=== PATIENT | male | born 1935 | race African-American/Black ===

== ENCOUNTER 2019-03-18 11:05 | Inpatient (IN) | payer MEDICARE, OTHER ==
[~2019-03-18] VITALS: Ht 172.7 cm; Wt 109.3 kg
[2019-03-18] MEDS ORDERED: ACETAMINOPHEN 325MG TABLET PO ONE (11:45)
[2019-03-18 12:05] LABS: CHLORIDE 103 mEq/L (98-107)
[2019-03-18 12:06] LABS: HEMATOCRIT. 35.2 % (42.0-52.0); HEMOGLOBIN. 12.6 g/dL (14.0-18.0); MEAN CORPUSCULAR HEMOGLOBIN 32.5 pg (28.0-32.0); MEAN CORPUSCULAR VOLUME 90.9 fL (80.0-94.0); MEAN PLATELET VOLUME 8.4 fl (7.4-10.4); PLATELET 216 x1000/uL (130-400); RED BLOOD CELL COUNT 3.87 mill/uL (4.7-6.1); RED CELL DISTRIBUTION WIDTH 13.8 % (11.6-14.6)
[2019-03-18] MEDS ORDERED: MAGNESIUM 2 G PREMIX 50 ML IV ONE (12:15)
[2019-03-18 12:42] LABS: PLATELET ESTIMATE NORMAL
[2019-03-18] MEDS ORDERED: FUROSEMIDE 40MG/4ML VIAL IVP ONE (13:00)
[2019-03-18] MEDS ORDERED: ASPIRIN 325MG EC TABLET PO ONE (13:00)
[2019-03-18] MEDS ORDERED: GUAIFENESIN 200MG/10ML SUGAR FREE UDC PO PRN (17:15)
[2019-03-18] MEDS ORDERED: DOCUSATE SODIUM 100MG CAPSULE PO PRN (17:15)
[2019-03-18] MEDS ORDERED: NA PHOS,M-B/NA PHOS,DI-BA ENEMA 118ML PR PRN (17:15)
[2019-03-18] MEDS ORDERED: IPRATROPIUM/ALBUTEROL 0.5-3(2.5)MG/3ML NEB NEB PRN (17:15)
[2019-03-18] MEDS ORDERED: DIPHENHYDRAMINE 50MG/ML VIAL IV PRN (17:15)
[2019-03-18] MEDS ORDERED: ACETAMINOPHEN 325MG TABLET PO PRN (17:15)
[2019-03-18] MEDS ORDERED: CLONIDINE 0.1MG TABLET PO PRN (17:15)
[2019-03-18] MEDS ORDERED: ONDANSETRON HCL 4MG/2ML INJ IV PRN (17:15)
[2019-03-18] MEDS ORDERED: MORPHINE SULFATE 2 MG/ML CPJ (NOT FOR IM USE) IV PRN (17:15)
[2019-03-18] MEDS ORDERED: HYDROCODONE/ACETAMINOPHEN 5/325MG TABLET PO PRN (17:15)
[2019-03-18] MEDS ORDERED: LORAZEPAM 2MG/ML CPJ IV PRN (17:15)
[2019-03-18] MEDS ORDERED: MAGNESIUM/ALUMINUM HYDROXIDE/SIMETHICONE 30ML UDC PO PRN (17:15)
[2019-03-18 20:26] LABS: CHLORIDE 104 mEq/L (98-107)
[2019-03-19] MEDS ORDERED: LEVOFLOXACIN 500MG PREMIX 100 ML IV SCH (02:00)
[2019-03-19 03:01] VITALS: BP 154/69
[2019-03-19 04:00] VITALS: BP 152/79
[2019-03-19 08:00] VITALS: BP 161/80
[2019-03-19] MEDS: ASPIRIN 81MG EC TABLET PO SCH (08:33)
[2019-03-19] MEDS: ENOXAPARIN 30MG/0.3ML SYR SUBCUT SCH ×2 (08:35→21:22)
[2019-03-19] MEDS ORDERED: FUROSEMIDE 40MG/4ML VIAL IV SCH (09:00)
[2019-03-19 09:54] LABS: HEMATOCRIT. 34.7 % (42.0-52.0); HEMOGLOBIN. 12.3 g/dL (14.0-18.0); MEAN CORPUSCULAR HEMOGLOBIN 32.3 pg (28.0-32.0); MEAN CORPUSCULAR VOLUME 90.9 fL (80.0-94.0); RED BLOOD CELL COUNT 3.81 mill/uL (4.7-6.1); RED CELL DISTRIBUTION WIDTH 13.8 % (11.6-14.6)
[2019-03-19 10:46] LABS: CHLORIDE 104 mEq/L (98-107)
[2019-03-19 10:55] LABS: LDL CHOLESTEROL 91 mg/dL (5-100)
[2019-03-19 10:56] LABS: HDL CHOLESTEROL 55 mg/dL (40-59); T4 FREE 1.68 ng/dL (0.76-1.46)
[2019-03-19 12:00] LABS: PLATELET 254 x1000/uL (130-400)
[2019-03-19 12:09] VITALS: BP 153/69
[2019-03-19 16:15] VITALS: BP 172/78
[2019-03-19] MEDS: AMLODIPINE 5MG TABLET PO SCH (18:10)
[2019-03-19] MEDS ORDERED: FUROSEMIDE 40MG TABLET PO SCH (18:15)
[2019-03-19] MEDS: FUROSEMIDE 40MG/4ML VIAL IVP SCH (19:27)
[2019-03-19 20:00] VITALS: BP 157/75
[2019-03-19] MEDS ORDERED: DEXTROSE 50% WATER 50ML SYRINGE IV PRN (20:15)
[2019-03-19] MEDS: BLOOD SUGAR DIAGNOSTIC STRIP TEST SCH (20:51)
[2019-03-19] MEDS: INSULIN LISPRO 100 UNITS/ML SUBCUT SCH (21:27)
[2019-03-20] VITALS: BP 139/57
[2019-03-20] MEDS: BLOOD SUGAR DIAGNOSTIC STRIP TEST SCH ×4 (06:21→21:09)
[2019-03-20] MEDS: FUROSEMIDE 40MG/4ML VIAL IVP SCH ×2 (06:28→17:30)
[2019-03-20] MEDS: INSULIN LISPRO 100 UNITS/ML SUBCUT SCH ×4 (07:38→21:15)
[2019-03-20 08:00] VITALS: BP 159/76
[2019-03-20] MEDS: LEVOFLOXACIN 500MG PREMIX 100 ML IV SCH (09:38)
[2019-03-20] MEDS: ENOXAPARIN 30MG/0.3ML SYR SUBCUT SCH ×2 (09:39→21:09)
[2019-03-20] MEDS: ASPIRIN 81MG EC TABLET PO SCH (09:39)
[2019-03-20] MEDS: AMLODIPINE 5MG TABLET PO SCH (09:40)
[2019-03-20 12:47] VITALS: BP 112/61
[2019-03-20 16:00] VITALS: BP 115/50
[2019-03-20] MEDS ORDERED: COLCHICINE 0.6MG TABLET PO NR (16:15)
[2019-03-20 20:28] VITALS: BP 123/52
[2019-03-20 20:38] LABS: CREATINE KINASE MB FRACTION 1.3 ng/mL (0.5-3.6)
[2019-03-20 20:39] LABS: T4 FREE 1.63 ng/dL (0.76-1.46)
[2019-03-21 00:42] VITALS: BP 136/56
[2019-03-21 00:51] LABS: CREATINE KINASE MB FRACTION 1.2 ng/mL (0.5-3.6)
[2019-03-21 04:00] VITALS: BP 121/59
[2019-03-21] MEDS: FUROSEMIDE 40MG/4ML VIAL IVP SCH ×2 (06:35→17:09)
[2019-03-21] MEDS: BLOOD SUGAR DIAGNOSTIC STRIP TEST SCH ×4 (06:35→20:48)
[2019-03-21] MEDS: INSULIN LISPRO 100 UNITS/ML SUBCUT SCH ×4 (07:50→20:48)
[2019-03-21 08:00] VITALS: BP 130/57
[2019-03-21] MEDS: LEVOFLOXACIN 500MG PREMIX 100 ML IV SCH (08:02)
[2019-03-21 08:39] LABS: CREATINE KINASE MB FRACTION 1.2 ng/mL (0.5-3.6)
[2019-03-21] MEDS ORDERED: COLCHICINE 0.6MG TABLET PO SCH (09:00)
[2019-03-21] MEDS: ENOXAPARIN 30MG/0.3ML SYR SUBCUT SCH ×2 (09:35→20:48)
[2019-03-21] MEDS: AMLODIPINE 5MG TABLET PO SCH (09:36)
[2019-03-21] MEDS: ASPIRIN 81MG EC TABLET PO SCH (09:36)
[2019-03-21 12:00] VITALS: BP 133/54
[2019-03-21] MEDS ORDERED: LOSARTAN POTASSIUM 50 MG TABLET PO SCH (13:00)
[2019-03-21] MEDS: LOSARTAN POTASSIUM 25 MG TABLET PO SCH (13:38)
[2019-03-21 16:00] VITALS: BP 112/50
[2019-03-21] MEDS ORDERED: LACTULOSE 20G/30ML UDC PO PRN (16:45)
[2019-03-21 20:00] VITALS: BP 135/67
[2019-03-21] MEDS: CARVEDILOL 3.125 MG TABLET PO SCH (20:48)
[2019-03-22 00:16] VITALS: BP 132/60
[2019-03-22 04:00] VITALS: BP 145/58
[2019-03-22 06:16] LABS: BASOPHILS % 1.1 % (0.0-2.0); EOSINOPHILS % 0.6 % (0.0-5.0); HEMATOCRIT. 31.1 % (42.0-52.0); HEMOGLOBIN. 11.2 g/dL (14.0-18.0); LYMPHOCYTES % 20.3 % (20.0-50.0); MEAN CORPUSCULAR HEMOGLOBIN 32.5 pg (28.0-32.0); MEAN CORPUSCULAR VOLUME 90.5 fL (80.0-94.0); MEAN PLATELET VOLUME 8.8 fl (7.4-10.4); MONOCYTES % 12.7 % (2.0-8.0); NEUTROPHILS % 65.3 % (40.0-76.0); PLATELET 232 x1000/uL (130-400); RED BLOOD CELL COUNT 3.44 mill/uL (4.7-6.1); RED CELL DISTRIBUTION WIDTH 13.8 % (11.6-14.6)
[2019-03-22] MEDS: FUROSEMIDE 40MG/4ML VIAL IVP SCH ×2 (06:17→17:25)
[2019-03-22] MEDS: BLOOD SUGAR DIAGNOSTIC STRIP TEST SCH ×4 (06:54→20:23)
[2019-03-22] MEDS: INSULIN LISPRO 100 UNITS/ML SUBCUT SCH ×4 (07:50→20:24)
[2019-03-22 08:00] VITALS: BP_SYST 134; BP_SYST 141; BP_DIAS 61; BP_DIAS 79
[2019-03-22] MEDS: LEVOFLOXACIN 500MG PREMIX 100 ML IV SCH (08:00)
[2019-03-22] MEDS: LOSARTAN POTASSIUM 25 MG TABLET PO SCH (08:45)
[2019-03-22] MEDS: ASPIRIN 81MG EC TABLET PO SCH (08:45)
[2019-03-22] MEDS: AMLODIPINE 5MG TABLET PO SCH (08:46)
[2019-03-22] MEDS: CARVEDILOL 3.125 MG TABLET PO SCH ×2 (08:46→20:24)
[2019-03-22] MEDS: ENOXAPARIN 30MG/0.3ML SYR SUBCUT SCH ×2 (08:47→20:24)
[2019-03-22] MEDS ORDERED: POTASSIUM CHLORIDE 20MEQ TABLET SR PO NR (11:15)
[2019-03-22 12:00] VITALS: BP 132/58
[2019-03-22 16:00] VITALS: BP 120/42
[2019-03-22 20:29] VITALS: BP 148/59
[2019-03-23 00:24] VITALS: BP 141/48
[2019-03-23 04:00] VITALS: BP 121/53
[2019-03-23] MEDS: FUROSEMIDE 40MG/4ML VIAL IVP SCH (06:19)
[2019-03-23] MEDS: BLOOD SUGAR DIAGNOSTIC STRIP TEST SCH ×2 (06:44→12:18)
[2019-03-23 07:43] LABS: EOSINOPHILS % 1.6 % (0.0-5.0); HEMATOCRIT. 32.3 % (42.0-52.0); HEMOGLOBIN. 11.5 g/dL (14.0-18.0); LYMPHOCYTES % 26.7 % (20.0-50.0); MEAN CORPUSCULAR HEMOGLOBIN 32.2 pg (28.0-32.0); MEAN CORPUSCULAR VOLUME 90.4 fL (80.0-94.0); MEAN PLATELET VOLUME 8.6 fl (7.4-10.4); MONOCYTES % 14.5 % (2.0-8.0); NEUTROPHILS % 56.2 % (40.0-76.0); PLATELET 252 x1000/uL (130-400); RED BLOOD CELL COUNT 3.57 mill/uL (4.7-6.1); RED CELL DISTRIBUTION WIDTH 13.9 % (11.6-14.6)
[2019-03-23] MEDS: INSULIN LISPRO 100 UNITS/ML SUBCUT SCH ×2 (07:44→12:24)
[2019-03-23 07:56] LABS: PROSTRATE SPECIFIC AG TOTAL 12.31 ng/mL (0.0-4.0)
[2019-03-23 08:00] VITALS: BP 139/57
[2019-03-23 08:21] LABS: CHLORIDE 103 mEq/L (98-107)
[2019-03-23 08:33] LABS: CREATINE KINASE 195 IU/L (39-308)
[2019-03-23] MEDS: AMLODIPINE 5MG TABLET PO SCH (09:20)
[2019-03-23] MEDS: CARVEDILOL 3.125 MG TABLET PO SCH (09:20)
[2019-03-23] MEDS: LOSARTAN POTASSIUM 25 MG TABLET PO SCH (09:20)
[2019-03-23] MEDS: ASPIRIN 81MG EC TABLET PO SCH (09:20)
[2019-03-23] MEDS: ENOXAPARIN 30MG/0.3ML SYR SUBCUT SCH (09:21)
[2019-03-23] MEDS ORDERED: LEVOFLOXACIN 500MG TABLET PO SCH (11:00)
[2019-03-23 12:00] VITALS: BP 130/54
[2019-03-23 14:16] VITALS: BP 130/54
== END 2019-03-23 16:15 | DRG 291 ==
LOC: ER 11:12 → 6WST 13:48 → ENRESERV 22:19
PROVIDERS: ADMIT Internal Medicine; ATTEND Internal Medicine
DX: I11.0 Hypertensive heart disease with heart failure (principal); J96.00 Acute respiratory failure, unspecified whether with hypoxia or hypercapnia; E46 Unspecified protein-calorie malnutrition; M62.82 Rhabdomyolysis; R64 Cachexia; I50.23 Acute on chronic systolic (congestive) heart failure; E78.5 Hyperlipidemia, unspecified; E11.42 Type 2 diabetes mellitus with diabetic polyneuropathy; I27.20 Pulmonary hypertension, unspecified; I34.0 Nonrheumatic mitral (valve) insufficiency; I42.9 Cardiomyopathy, unspecified; M10.9 Gout, unspecified; R62.7 Adult failure to thrive; Z68.36 Body mass index [BMI] 36.0-36.9, adult; Z79.899 Other long term (current) drug therapy; Z82.49 Family history of ischemic heart disease and other diseases of the circulatory system; Z87.891 Personal history of nicotine dependence
CPT/HCPCS: 36415; 71045; 73120; 80048; 80053; 80061; 82550; 82553; 82607; 82962; 83036; 83880; 84134; 84153; 84439; 84443; 84484; 84550; 85025; 85379; 93005; 93306; 93970; 93971; 96365; 96375; 97162; 99285; C1893; J1650; J1815; J1940; J1956; J3475; G0103

== ENCOUNTER 2019-03-23 16:30 | Inpatient (IN) | payer MEDICARE ==
[~2019-03-23] VITALS: Ht 172.7 cm; Wt 109.1 kg
[2019-03-23] MEDS ORDERED: LORAZEPAM 0.5MG TABLET PO PRN (17:45)
[2019-03-23] MEDS ORDERED: LACTULOSE 20G/30ML UDC PO PRN (17:45)
[2019-03-23] MEDS ORDERED: ONDANSETRON HCL 4MG TABLET PO PRN (17:45)
[2019-03-23] MEDS ORDERED: DEXTROSE 50% WATER 50ML SYRINGE IV PRN (17:45)
[2019-03-23] MEDS ORDERED: MAGNESIUM/ALUMINUM HYDROXIDE/SIMETHICONE 30ML UDC PO PRN (17:45)
[2019-03-23] MEDS ORDERED: GUAIFENESIN 200MG/10ML SUGAR FREE UDC PO PRN (17:45)
[2019-03-23] MEDS ORDERED: IPRATROPIUM/ALBUTEROL 0.5-3(2.5)MG/3ML NEB HHN PRN (17:45)
[2019-03-23] MEDS ORDERED: CLONIDINE 0.1MG TABLET PO PRN (17:45)
[2019-03-23] MEDS ORDERED: DIPHENHYDRAMINE 25MG CAPSULE PO PRN (17:45)
[2019-03-23] MEDS ORDERED: NA PHOS,M-B/NA PHOS,DI-BA ENEMA 118ML PR PRN (17:45)
[2019-03-23] MEDS ORDERED: ACETAMINOPHEN 325MG TABLET PO PRN (17:45)
[2019-03-23] MEDS ORDERED: MORPHINE SULFATE 2 MG/ML CPJ (NOT FOR IM USE) IV PRN (17:45)
[2019-03-23 19:44] VITALS: BP 130/59
[2019-03-23 20:00] VITALS: BP 136/61
[2019-03-23] MEDS: ENOXAPARIN 30MG/0.3ML SYR SUBCUT SCH (21:53)
[2019-03-23] MEDS: CARVEDILOL 3.125 MG TABLET PO SCH (21:55)
[2019-03-23] MEDS: BLOOD SUGAR DIAGNOSTIC STRIP TEST SCH (21:55)
[2019-03-23] MEDS: INSULIN LISPRO 100 UNITS/ML SUBCUT SCH (21:57)
[2019-03-24] MEDS: BLOOD SUGAR DIAGNOSTIC STRIP TEST SCH ×4 (06:08→21:00)
[2019-03-24] MEDS: INSULIN LISPRO 100 UNITS/ML SUBCUT SCH ×4 (06:11→22:12)
[2019-03-24] MEDS: FUROSEMIDE 40MG TABLET PO SCH ×2 (06:58→17:42)
[2019-03-24 08:05] VITALS: BP 133/58
[2019-03-24] MEDS: DOCUSATE SODIUM 100MG CAPSULE PO SCH ×2 (09:09→17:42)
[2019-03-24] MEDS: ASPIRIN 81MG EC TABLET PO SCH (09:10)
[2019-03-24] MEDS: CARVEDILOL 3.125 MG TABLET PO SCH ×2 (09:10→22:09)
[2019-03-24] MEDS: LOSARTAN POTASSIUM 25 MG TABLET PO SCH (09:10)
[2019-03-24] MEDS: AMLODIPINE 5MG TABLET PO SCH (09:10)
[2019-03-24] MEDS: ENOXAPARIN 30MG/0.3ML SYR SUBCUT SCH ×2 (09:11→22:11)
[2019-03-24] MEDS: LEVOFLOXACIN 500MG TABLET PO SCH (12:55)
[2019-03-24] MEDS ORDERED: NA PHOS,M-B/NA PHOS,DI-BA ENEMA 118ML PR PRN (15:45)
[2019-03-24] MEDS ORDERED: DOCUSATE SODIUM 100MG CAPSULE PO SCH (17:00)
[2019-03-24 20:00] VITALS: BP 137/48
[2019-03-25] MEDS: INSULIN LISPRO 100 UNITS/ML SUBCUT SCH ×4 (06:04→22:39)
[2019-03-25] MEDS: BLOOD SUGAR DIAGNOSTIC STRIP TEST SCH ×4 (06:04→21:00)
[2019-03-25] MEDS: FUROSEMIDE 40MG TABLET PO SCH ×2 (06:04→06:11)
[2019-03-25 08:25] VITALS: BP 149/60
[2019-03-25] MEDS: ASPIRIN 81MG EC TABLET PO SCH (10:52)
[2019-03-25] MEDS: AMLODIPINE 5MG TABLET PO SCH (10:53)
[2019-03-25] MEDS: LOSARTAN POTASSIUM 25 MG TABLET PO SCH (10:54)
[2019-03-25] MEDS: DOCUSATE SODIUM 100MG CAPSULE PO SCH ×2 (10:54→17:00)
[2019-03-25] MEDS: CARVEDILOL 3.125 MG TABLET PO SCH ×2 (10:55→22:35)
[2019-03-25] MEDS: ENOXAPARIN 30MG/0.3ML SYR SUBCUT SCH ×2 (10:56→22:38)
[2019-03-25] MEDS: LEVOFLOXACIN 500MG TABLET PO SCH (11:22)
[2019-03-25] MEDS ORDERED: TRIAMCINOLONE ACETONIDE 40MG/ML 1ML VIAL IM NR (12:00)
[2019-03-25] MEDS ORDERED: ETHYL CHLORIDE CAN TOP NR (12:00)
[2019-03-25] MEDS ORDERED: BUPIVACAINE HCL 0.5% (5MG/ML) 50ML IR NR (12:00)
[2019-03-25] MEDS ORDERED: LIDOCAINE HCL/PF 1% 10 MG/ML 5ML VIAL IJ NR (12:00)
[2019-03-25] MEDS: LACTULOSE 20G/30ML UDC PO PRN (12:58)
[2019-03-25] MEDS: BISACODYL 5MG TABLET PO PRN (12:59)
[2019-03-25 20:00] VITALS: BP 130/50
[2019-03-26] MEDS: BLOOD SUGAR DIAGNOSTIC STRIP TEST SCH ×4 (06:07→21:00)
[2019-03-26] MEDS: FUROSEMIDE 40MG TABLET PO SCH ×2 (06:08→16:39)
[2019-03-26] MEDS: INSULIN LISPRO 100 UNITS/ML SUBCUT SCH ×4 (06:09→22:22)
[2019-03-26 08:00] VITALS: BP_SYST 108; BP_SYST 119; BP_DIAS 54; BP_DIAS 66
[2019-03-26] MEDS: ASPIRIN 81MG EC TABLET PO SCH (08:50)
[2019-03-26] MEDS: ENOXAPARIN 30MG/0.3ML SYR SUBCUT SCH ×2 (08:50→22:11)
[2019-03-26] MEDS: DOCUSATE SODIUM 100MG CAPSULE PO SCH ×2 (08:50→16:39)
[2019-03-26] MEDS: LOSARTAN POTASSIUM 25 MG TABLET PO SCH (08:51)
[2019-03-26] MEDS: AMLODIPINE 5MG TABLET PO SCH (08:51)
[2019-03-26] MEDS: CARVEDILOL 3.125 MG TABLET PO SCH ×2 (08:51→22:11)
[2019-03-26] MEDS: LEVOFLOXACIN 500MG TABLET PO SCH (11:36)
[2019-03-26 13:40] VITALS: BP 122/63
[2019-03-26] MEDS: HYDROCODONE/ACETAMINOPHEN 5/325MG TABLET PO PRN (13:49)
[2019-03-26 20:00] VITALS: BP 140/50
[2019-03-27] MEDS: BLOOD SUGAR DIAGNOSTIC STRIP TEST SCH ×4 (05:41→21:00)
[2019-03-27] MEDS: FUROSEMIDE 40MG TABLET PO SCH ×2 (05:41→17:28)
[2019-03-27] MEDS: INSULIN LISPRO 100 UNITS/ML SUBCUT SCH ×4 (06:08→22:26)
[2019-03-27 07:00] VITALS: BP 146/60
[2019-03-27] MEDS: LIDOCAINE 5% PATCH TOP SCH (08:53)
[2019-03-27] MEDS: DOCUSATE SODIUM 100MG CAPSULE PO SCH ×2 (08:54→17:28)
[2019-03-27] MEDS: ASPIRIN 81MG EC TABLET PO SCH (08:54)
[2019-03-27] MEDS: LOSARTAN POTASSIUM 25 MG TABLET PO SCH (08:54)
[2019-03-27] MEDS: CARVEDILOL 3.125 MG TABLET PO SCH ×2 (08:54→21:54)
[2019-03-27] MEDS: ENOXAPARIN 30MG/0.3ML SYR SUBCUT SCH ×2 (08:55→21:54)
[2019-03-27] MEDS: AMLODIPINE 5MG TABLET PO SCH (08:56)
[2019-03-27] MEDS: HYDROCODONE/ACETAMINOPHEN 5/325MG TABLET PO PRN (08:57)
[2019-03-27] MEDS: CLOTRIMAZOLE 1% CREAM 30GM TOP SCH (11:27)
[2019-03-27] MEDS: LEVOFLOXACIN 500MG TABLET PO SCH (11:27)
[2019-03-27 20:00] VITALS: BP 129/51
[2019-03-28] MEDS: BLOOD SUGAR DIAGNOSTIC STRIP TEST SCH ×4 (06:37→21:10)
[2019-03-28] MEDS: FUROSEMIDE 40MG TABLET PO SCH ×2 (06:38→16:59)
[2019-03-28 08:00] VITALS: BP 124/57
[2019-03-28] MEDS: INSULIN LISPRO 100 UNITS/ML SUBCUT SCH ×4 (09:00→21:12)
[2019-03-28] MEDS: DOCUSATE SODIUM 100MG CAPSULE PO SCH ×2 (10:13→16:59)
[2019-03-28] MEDS: LEVOFLOXACIN 500MG TABLET PO SCH (10:13)
[2019-03-28] MEDS: ZINC SULFATE 220 MG ( 50 ) CAPSULE PO SCH (10:13)
[2019-03-28] MEDS: ASPIRIN 81MG EC TABLET PO SCH (10:13)
[2019-03-28] MEDS: ENOXAPARIN 30MG/0.3ML SYR SUBCUT SCH ×2 (10:14→21:00)
[2019-03-28] MEDS: AMLODIPINE 5MG TABLET PO SCH (10:14)
[2019-03-28] MEDS: ASCORBIC ACID 500 MG TABLET PO SCH (10:14)
[2019-03-28] MEDS: LIDOCAINE 5% PATCH TOP SCH (10:15)
[2019-03-28] MEDS: CARVEDILOL 3.125 MG TABLET PO SCH ×2 (10:15→21:00)
[2019-03-28] MEDS: LOSARTAN POTASSIUM 25 MG TABLET PO SCH (10:15)
[2019-03-28] MEDS: HYDROCODONE/ACETAMINOPHEN 5/325MG TABLET PO PRN (10:16)
[2019-03-28] MEDS: CLOTRIMAZOLE 1% CREAM 30GM TOP SCH (16:59)
[2019-03-28] MEDS: LACTULOSE 20G/30ML UDC PO PRN (16:59)
[2019-03-28] MEDS ORDERED: LORAZEPAM 0.5MG TABLET PO PRN (18:45)
[2019-03-28 20:00] VITALS: BP 121/50
[2019-03-29] MEDS: BLOOD SUGAR DIAGNOSTIC STRIP TEST SCH ×4 (06:21→21:00)
[2019-03-29] MEDS: FUROSEMIDE 40MG TABLET PO SCH ×2 (06:26→18:31)
[2019-03-29] MEDS: INSULIN LISPRO 100 UNITS/ML SUBCUT SCH ×4 (06:28→21:28)
[2019-03-29 08:00] VITALS: BP 119/47
[2019-03-29] MEDS: ASPIRIN 81MG EC TABLET PO SCH (09:31)
[2019-03-29] MEDS: LOSARTAN POTASSIUM 25 MG TABLET PO SCH (09:31)
[2019-03-29] MEDS: ASCORBIC ACID 500 MG TABLET PO SCH (09:31)
[2019-03-29] MEDS: AMLODIPINE 5MG TABLET PO SCH (09:31)
[2019-03-29] MEDS: ZINC SULFATE 220 MG ( 50 ) CAPSULE PO SCH (09:31)
[2019-03-29] MEDS: CARVEDILOL 3.125 MG TABLET PO SCH ×2 (09:32→20:42)
[2019-03-29] MEDS: DOCUSATE SODIUM 100MG CAPSULE PO SCH (09:32)
[2019-03-29] MEDS: ENOXAPARIN 30MG/0.3ML SYR SUBCUT SCH ×2 (09:33→20:42)
[2019-03-29] MEDS: LIDOCAINE 5% PATCH TOP SCH (09:34)
[2019-03-29] MEDS: CLOTRIMAZOLE 1% CREAM 30GM TOP SCH (09:35)
[2019-03-29] MEDS: LEVOFLOXACIN 500MG TABLET PO SCH (12:29)
[2019-03-29] MEDS ORDERED: DOCUSATE SODIUM 100MG CAPSULE PO PRN (15:45)
[2019-03-29 20:00] VITALS: BP 112/59
[2019-03-30] MEDS: BLOOD SUGAR DIAGNOSTIC STRIP TEST SCH ×4 (06:00→20:53)
[2019-03-30] MEDS: FUROSEMIDE 40MG TABLET PO SCH ×2 (06:16→17:05)
[2019-03-30] MEDS: INSULIN LISPRO 100 UNITS/ML SUBCUT SCH ×4 (06:19→20:53)
[2019-03-30 07:45] LABS: BASOPHILS % 0.7 % (0.0-2.0); EOSINOPHILS % 1.3 % (0.0-5.0); HEMATOCRIT. 29.8 % (42.0-52.0); HEMOGLOBIN. 10.6 g/dL (14.0-18.0); LYMPHOCYTES % 36.3 % (20.0-50.0); MEAN CORPUSCULAR HEMOGLOBIN 31.9 pg (28.0-32.0); MEAN CORPUSCULAR VOLUME 89.7 fL (80.0-94.0); MEAN PLATELET VOLUME 7.9 fl (7.4-10.4); MONOCYTES % 12.9 % (2.0-8.0); NEUTROPHILS % 48.8 % (40.0-76.0); PLATELET 342 x1000/uL (130-400); RED BLOOD CELL COUNT 3.32 mill/uL (4.7-6.1); RED CELL DISTRIBUTION WIDTH 13.7 % (11.6-14.6)
[2019-03-30 08:00] VITALS: BP 126/53
[2019-03-30] MEDS: ASPIRIN 81MG EC TABLET PO SCH (08:41)
[2019-03-30] MEDS: LOSARTAN POTASSIUM 25 MG TABLET PO SCH (08:41)
[2019-03-30] MEDS: ASCORBIC ACID 500 MG TABLET PO SCH (08:41)
[2019-03-30] MEDS: ZINC SULFATE 220 MG ( 50 ) CAPSULE PO SCH (08:41)
[2019-03-30] MEDS: HYDROCODONE/ACETAMINOPHEN 5/325MG TABLET PO PRN (08:42)
[2019-03-30] MEDS: CARVEDILOL 3.125 MG TABLET PO SCH ×2 (08:42→20:47)
[2019-03-30] MEDS: ENOXAPARIN 30MG/0.3ML SYR SUBCUT SCH ×2 (08:43→20:48)
[2019-03-30] MEDS: LIDOCAINE 5% PATCH TOP SCH (08:43)
[2019-03-30] MEDS: AMLODIPINE 5MG TABLET PO SCH (08:44)
[2019-03-30] MEDS: CLOTRIMAZOLE 1% CREAM 30GM TOP SCH (09:41)
[2019-03-30] MEDS: LEVOFLOXACIN 500MG TABLET PO SCH (11:19)
[2019-03-30] MEDS: BISACODYL 5MG TABLET PO PRN (14:14)
[2019-03-30] MEDS: LACTULOSE 20G/30ML UDC PO PRN (17:05)
[2019-03-30 20:00] VITALS: BP 124/47
[2019-03-31] MEDS: BLOOD SUGAR DIAGNOSTIC STRIP TEST SCH ×4 (06:16→21:00)
[2019-03-31] MEDS: FUROSEMIDE 40MG TABLET PO SCH ×2 (06:33→16:25)
[2019-03-31] MEDS: INSULIN LISPRO 100 UNITS/ML SUBCUT SCH ×4 (06:34→22:12)
[2019-03-31 07:00] VITALS: BP 138/49
[2019-03-31] MEDS: HYDROCODONE/ACETAMINOPHEN 5/325MG TABLET PO PRN (07:41)
[2019-03-31] MEDS: ZINC SULFATE 220 MG ( 50 ) CAPSULE PO SCH (08:25)
[2019-03-31] MEDS: LOSARTAN POTASSIUM 25 MG TABLET PO SCH (08:25)
[2019-03-31] MEDS: ASCORBIC ACID 500 MG TABLET PO SCH (08:25)
[2019-03-31] MEDS: ASPIRIN 81MG EC TABLET PO SCH (08:26)
[2019-03-31] MEDS: AMLODIPINE 5MG TABLET PO SCH (08:26)
[2019-03-31] MEDS: CARVEDILOL 3.125 MG TABLET PO SCH ×2 (08:26→20:59)
[2019-03-31] MEDS: ENOXAPARIN 30MG/0.3ML SYR SUBCUT SCH ×2 (08:27→21:00)
[2019-03-31] MEDS: LIDOCAINE 5% PATCH TOP SCH (08:27)
[2019-03-31] MEDS: CLOTRIMAZOLE 1% CREAM 30GM TOP SCH (09:03)
[2019-03-31] MEDS: LEVOFLOXACIN 500MG TABLET PO SCH (10:13)
[2019-03-31 20:00] VITALS: BP 118/77
[2019-04-01] MEDS: BLOOD SUGAR DIAGNOSTIC STRIP TEST SCH ×4 (06:11→21:18)
[2019-04-01] MEDS: FUROSEMIDE 40MG TABLET PO SCH ×2 (06:11→16:20)
[2019-04-01 07:00] VITALS: BP 105/39
[2019-04-01] MEDS: ASCORBIC ACID 500 MG TABLET PO SCH (08:55)
[2019-04-01] MEDS: ZINC SULFATE 220 MG ( 50 ) CAPSULE PO SCH (08:55)
[2019-04-01] MEDS: ASPIRIN 81MG EC TABLET PO SCH (08:55)
[2019-04-01] MEDS: ENOXAPARIN 30MG/0.3ML SYR SUBCUT SCH ×2 (08:56→22:10)
[2019-04-01] MEDS: CLOTRIMAZOLE 1% CREAM 30GM TOP SCH (08:56)
[2019-04-01] MEDS: CARVEDILOL 3.125 MG TABLET PO SCH ×2 (08:57→21:00)
[2019-04-01] MEDS: LIDOCAINE 5% PATCH TOP SCH (08:57)
[2019-04-01] MEDS: LOSARTAN POTASSIUM 25 MG TABLET PO SCH (08:57)
[2019-04-01] MEDS: AMLODIPINE 5MG TABLET PO SCH (08:58)
[2019-04-01] MEDS: INSULIN LISPRO 100 UNITS/ML SUBCUT SCH ×4 (08:58→22:09)
[2019-04-01 14:00] VITALS: BP 105/56
[2019-04-01] MEDS: HYDROCODONE/ACETAMINOPHEN 5/325MG TABLET PO PRN (14:02)
[2019-04-01 20:00] VITALS: BP 120/42
[2019-04-02] MEDS: INSULIN LISPRO 100 UNITS/ML SUBCUT SCH ×4 (06:22→21:27)
[2019-04-02] MEDS: BLOOD SUGAR DIAGNOSTIC STRIP TEST SCH ×4 (06:22→20:50)
[2019-04-02] MEDS: FUROSEMIDE 40MG TABLET PO SCH ×2 (06:22→17:00)
[2019-04-02 08:10] VITALS: BP 141/53
[2019-04-02] MEDS: LIDOCAINE 5% PATCH TOP SCH (10:04)
[2019-04-02] MEDS: ENOXAPARIN 30MG/0.3ML SYR SUBCUT SCH ×2 (10:04→20:50)
[2019-04-02] MEDS: AMLODIPINE 5MG TABLET PO SCH (10:05)
[2019-04-02] MEDS: ASPIRIN 81MG EC TABLET PO SCH (10:05)
[2019-04-02] MEDS: CARVEDILOL 3.125 MG TABLET PO SCH ×2 (10:05→20:50)
[2019-04-02] MEDS: LOSARTAN POTASSIUM 25 MG TABLET PO SCH (10:05)
[2019-04-02] MEDS: ASCORBIC ACID 500 MG TABLET PO SCH (10:06)
[2019-04-02] MEDS: ZINC SULFATE 220 MG ( 50 ) CAPSULE PO SCH (10:06)
[2019-04-02] MEDS: CLOTRIMAZOLE 1% CREAM 30GM TOP SCH (10:24)
[2019-04-02] MEDS: HYDROCODONE/ACETAMINOPHEN 5/325MG TABLET PO PRN (14:20)
[2019-04-02] MEDS: LACTULOSE 20G/30ML UDC PO PRN (17:00)
[2019-04-02 20:00] VITALS: BP 125/46
[2019-04-03] MEDS: BLOOD SUGAR DIAGNOSTIC STRIP TEST SCH ×4 (06:13→21:12)
[2019-04-03] MEDS: FUROSEMIDE 40MG TABLET PO SCH ×2 (06:13→17:02)
[2019-04-03] MEDS: BISACODYL 5MG TABLET PO PRN (06:14)
[2019-04-03] MEDS: INSULIN LISPRO 100 UNITS/ML SUBCUT SCH ×4 (06:20→21:35)
[2019-04-03 07:49] VITALS: BP 144/48
[2019-04-03] MEDS: ENOXAPARIN 30MG/0.3ML SYR SUBCUT SCH ×2 (08:14→21:12)
[2019-04-03] MEDS: ASPIRIN 81MG EC TABLET PO SCH (08:14)
[2019-04-03] MEDS: AMLODIPINE 5MG TABLET PO SCH (08:15)
[2019-04-03] MEDS: CARVEDILOL 3.125 MG TABLET PO SCH ×2 (08:15→21:12)
[2019-04-03] MEDS: ASCORBIC ACID 500 MG TABLET PO SCH (08:15)
[2019-04-03] MEDS: LOSARTAN POTASSIUM 25 MG TABLET PO SCH (08:15)
[2019-04-03] MEDS: ZINC SULFATE 220 MG ( 50 ) CAPSULE PO SCH (08:15)
[2019-04-03] MEDS: LIDOCAINE 5% PATCH TOP SCH (08:16)
[2019-04-03] MEDS: CLOTRIMAZOLE 1% CREAM 30GM TOP SCH (08:16)
[2019-04-03] MEDS ORDERED: HYDROCODONE/ACETAMINOPHEN 5/325MG TABLET PO PRN (11:15)
[2019-04-03 17:04] LABS: BASOPHILS % 0.7 % (0.0-2.0); EOSINOPHILS % 0.7 % (0.0-5.0); HEMATOCRIT. 31.8 % (42.0-52.0); HEMOGLOBIN. 11.3 g/dL (14.0-18.0); LYMPHOCYTES % 17.8 % (20.0-50.0); MEAN CORPUSCULAR HEMOGLOBIN 31.8 pg (28.0-32.0); MEAN CORPUSCULAR VOLUME 89.4 fL (80.0-94.0); MEAN PLATELET VOLUME 7.7 fl (7.4-10.4); MONOCYTES % 14.3 % (2.0-8.0); NEUTROPHILS % 66.5 % (40.0-76.0); PLATELET 371 x1000/uL (130-400); RED BLOOD CELL COUNT 3.55 mill/uL (4.7-6.1)
[2019-04-03 20:02] VITALS: BP 124/42
[2019-04-03] MEDS: COLCHICINE 0.6MG TABLET PO SCH (21:12)
[2019-04-04] MEDS: FUROSEMIDE 40MG TABLET PO SCH ×2 (06:16→16:45)
[2019-04-04] MEDS: BLOOD SUGAR DIAGNOSTIC STRIP TEST SCH ×4 (06:16→20:13)
[2019-04-04] MEDS: INSULIN LISPRO 100 UNITS/ML SUBCUT SCH ×4 (06:38→20:23)
[2019-04-04 08:16] VITALS: BP 150/56
[2019-04-04] MEDS: ZINC SULFATE 220 MG ( 50 ) CAPSULE PO SCH (08:20)
[2019-04-04] MEDS: ASCORBIC ACID 500 MG TABLET PO SCH (08:20)
[2019-04-04] MEDS: CARVEDILOL 3.125 MG TABLET PO SCH ×2 (08:21→20:10)
[2019-04-04] MEDS: AMLODIPINE 5MG TABLET PO SCH (08:21)
[2019-04-04] MEDS: LIDOCAINE 5% PATCH TOP SCH (08:21)
[2019-04-04] MEDS: LOSARTAN POTASSIUM 25 MG TABLET PO SCH (08:21)
[2019-04-04] MEDS: ASPIRIN 81MG EC TABLET PO SCH (08:21)
[2019-04-04] MEDS: COLCHICINE 0.6MG TABLET PO SCH ×2 (08:21→20:13)
[2019-04-04] MEDS: ENOXAPARIN 30MG/0.3ML SYR SUBCUT SCH ×2 (08:22→20:13)
[2019-04-04] MEDS: CLOTRIMAZOLE 1% CREAM 30GM TOP SCH (08:22)
[2019-04-04 20:00] VITALS: BP 114/45
[2019-04-05] MEDS: FUROSEMIDE 40MG TABLET PO SCH ×2 (06:25→16:20)
[2019-04-05] MEDS: BLOOD SUGAR DIAGNOSTIC STRIP TEST SCH ×4 (06:25→21:40)
[2019-04-05] MEDS: INSULIN LISPRO 100 UNITS/ML SUBCUT SCH ×4 (06:32→22:05)
[2019-04-05 08:26] VITALS: BP 137/47
[2019-04-05] MEDS: ASCORBIC ACID 500 MG TABLET PO SCH (08:33)
[2019-04-05] MEDS: ASPIRIN 81MG EC TABLET PO SCH (08:33)
[2019-04-05] MEDS: AMLODIPINE 5MG TABLET PO SCH (08:33)
[2019-04-05] MEDS: COLCHICINE 0.6MG TABLET PO SCH ×2 (08:33→22:03)
[2019-04-05] MEDS: CARVEDILOL 3.125 MG TABLET PO SCH ×2 (08:34→21:00)
[2019-04-05] MEDS: LIDOCAINE 5% PATCH TOP SCH (08:36)
[2019-04-05] MEDS: ENOXAPARIN 30MG/0.3ML SYR SUBCUT SCH ×2 (08:37→22:05)
[2019-04-05] MEDS: CLOTRIMAZOLE 1% CREAM 30GM TOP SCH (08:43)
[2019-04-05] MEDS: LOSARTAN POTASSIUM 25 MG TABLET PO SCH (09:01)
[2019-04-05] MEDS: ZINC SULFATE 220 MG ( 50 ) CAPSULE PO SCH (10:28)
[2019-04-05] MEDS: BISACODYL 5MG TABLET PO PRN (14:05)
[2019-04-05 20:00] VITALS: BP 108/50
[2019-04-06] MEDS: BLOOD SUGAR DIAGNOSTIC STRIP TEST SCH ×2 (06:07→11:44)
[2019-04-06] MEDS: INSULIN LISPRO 100 UNITS/ML SUBCUT SCH ×2 (06:08→12:52)
[2019-04-06] MEDS: FUROSEMIDE 40MG TABLET PO SCH (06:16)
[2019-04-06 07:50] VITALS: BP 122/52
[2019-04-06] MEDS: ASPIRIN 81MG EC TABLET PO SCH (08:41)
[2019-04-06] MEDS: CARVEDILOL 3.125 MG TABLET PO SCH (08:41)
[2019-04-06] MEDS: COLCHICINE 0.6MG TABLET PO SCH (08:41)
[2019-04-06] MEDS: ENOXAPARIN 30MG/0.3ML SYR SUBCUT SCH (08:41)
[2019-04-06] MEDS: ASCORBIC ACID 500 MG TABLET PO SCH (08:42)
[2019-04-06] MEDS: CLOTRIMAZOLE 1% CREAM 30GM TOP SCH (08:42)
[2019-04-06] MEDS: LOSARTAN POTASSIUM 25 MG TABLET PO SCH (08:42)
[2019-04-06] MEDS: AMLODIPINE 5MG TABLET PO SCH (08:42)
[2019-04-06] MEDS: LIDOCAINE 5% PATCH TOP SCH (08:42)
[2019-04-06] MEDS: ZINC SULFATE 220 MG ( 50 ) CAPSULE PO SCH (09:13)
[2019-04-06 15:14] VITALS: BP 122/52
== END 2019-04-06 16:30 | disposition home health service (06) | DRG 73 ==
PROVIDERS: ADMIT Psychiatry & Neurology Neurology; ATTEND Internal Medicine
DX: G62.81 Critical illness polyneuropathy (principal); J96.00 Acute respiratory failure, unspecified whether with hypoxia or hypercapnia; I50.23 Acute on chronic systolic (congestive) heart failure; G72.81 Critical illness myopathy; E46 Unspecified protein-calorie malnutrition; R64 Cachexia; I42.9 Cardiomyopathy, unspecified; I11.0 Hypertensive heart disease with heart failure; R53.81 Other malaise; R62.7 Adult failure to thrive; F41.9 Anxiety disorder, unspecified; I25.10 Atherosclerotic heart disease of native coronary artery without angina pectoris; I27.20 Pulmonary hypertension, unspecified; M10.9 Gout, unspecified; R32 Unspecified urinary incontinence; B35.3 Tinea pedis; E11.42 Type 2 diabetes mellitus with diabetic polyneuropathy; E66.01 Morbid (severe) obesity due to excess calories; F09 Unspecified mental disorder due to known physiological condition; F39 Unspecified mood [affective] disorder; K59.00 Constipation, unspecified; R26.2 Difficulty in walking, not elsewhere classified; R97.20 Elevated prostate specific antigen [PSA]; R60.0 Localized edema; Z60.2 Problems related to living alone; M72.2 Plantar fascial fibromatosis; G90.8 Other disorders of autonomic nervous system; R53.1 Weakness; Z86.73 Personal history of transient ischemic attack (TIA), and cerebral infarction without residual deficits; Z87.891 Personal history of nicotine dependence; Z68.36 Body mass index [BMI] 36.0-36.9, adult; Z79.899 Other long term (current) drug therapy
CPT/HCPCS: 36415; 73620; 80048; 82962; 84550; 85025; 92523; 93970; 97110; 97112; 97116; 97150; 97162; 97166; 97530; 97535; A6261; J1650; J1815; J3301; J3490; A5200